=== PATIENT | female | born 1950 | race American Indian/Alaskan Native ===

== ENCOUNTER 2021-10-14 14:04 | Emergency (ER) | payer OTHER ==
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
[2021-10-14 15:32] VITALS: BP 135/68
== END 2021-10-14 17:00 | disposition home or self-care (01) ==
LOC: ED 14:04
DX: S50.811A Abrasion of right forearm, initial encounter (principal); Z88.0 Allergy status to penicillin; V49.9XXA Car occupant (driver) (passenger) injured in unspecified traffic accident, initial encounter; Y93.89 Activity, other specified; Y92.89 Other specified places as the place of occurrence of the external cause; Y99.8 Other external cause status
CPT/HCPCS: 99283